=== PATIENT | female | born 1975 | race Caucasian/White ===

== ENCOUNTER 2018-12-10 06:31 | Day surgery (SDC) | payer OTHER ==
[2018-12-10] MEDS ORDERED: ANESTHESIA TRAY IN PYXIS 1 EA TRAY MC ONE (07:05)
[2018-12-10] MEDS ORDERED: IOHEXOL 50 ML IV ONE (07:50)
[2018-12-10] MEDS ORDERED: LIDOCAINE /MPF 1% VIAL 5 ML VIAL ONE (07:51)
[2018-12-10] MEDS ORDERED: BUPIVACAINE 0.5 % PF 150 MG/30 ML VIAL ONE (07:51)
[2018-12-10] MEDS ORDERED: BETA ACET/BET NA PHOS MDV 6 MG/ML VIAL ONE (07:52)
== END 2018-12-10 14:00 | disposition home or self-care (01) ==
LOC: DS 06:31 → MED 06:33 → UNDOADMIN 06:33 → UNDODISIN 09:45 → DS 14:00
PROVIDERS: ATTEND Student in an Organized Health Care Education/Training Program
DX: M25.851 Other specified joint disorders, right hip (principal)
CPT/HCPCS: 27095; 73501; 84703; 87081; A6402; J0702; J2704; J3490 ×2; Q9967; G0378

== ENCOUNTER 2019-02-18 05:30 | Inpatient (IN) | payer OTHER ==
[~2019-02-18] VITALS: Ht 154.9 cm; Wt 50.6 kg
--- NOTE | 2019-02-18 06:12 | NUR ---
RN MS OPENING NOTES PT ADMITTED FROM HOME FOR R HIP ARTHROPLASTY WITH DR. HUERTA. PT A/OX4, BREATHING EVEN AND UNLABORED ON ROOM AIR, IV ACCESS ON THE L AC 20G PATENT AND FLUSHING, CONSENTS SIGNED, CHECKLIST COMPLETED, IN BED AWAITING OR TRANSPORT
[2019-02-18] MEDS ORDERED: FENTANYL PF 100MCG/2ML AMPUL ONE (07:20)
[2019-02-18] MEDS ORDERED: MIDAZOLAM HCL 2 MG/2ML VIAL ONE (07:20)
[2019-02-18] MEDS ORDERED: ANESTHESIA TRAY IN PYXIS 1 EA TRAY MC ONE (07:24)
[2019-02-18] MEDS ORDERED: BACITRACIN 50000 UNITS/VIAL ONE (07:24)
--- NOTE | 2019-02-18 07:51 | NUR ---
MS RN OPENING NOTES RECEIVED PT LAYING IN BED WITH HOB SLIGHTLY ELEVATED. PT IS A/O X4, AFEBRILE. RESPIRATIONS ARE EVEN AND UNLABORED, NOT IN ANY ACUTE DISTRESS NOTED. PT C/O PAIN 5/10 TO RIGHT HIP. DENIES ANY SOB, N/V AT THIS TIME. PT SCHEDULED FOR SURGERY TODAY. SAFETY MEASURES ARE IN PLACE. INSTRUCTED PT TO USE CALL LIGHT WHEN ASSISTANCE IS NEEDED, CALL LIGHT IS LEFT WITHIN REACH. WILL MONITOR THROUGHOUT SHIFT FOR CONTINUITY OF CARE.
--- NOTE | 2019-02-18 07:55 | NUR ---
MS RN NOTES-- PT P/U BY OR FOR RIGHT HIP ARTHROSCOPY VIA [facility]BY.
[2019-02-18] MEDS ORDERED: DESFLURANE 240 ML BOTTLE IH ONE ×2 (08:10→08:16)
[2019-02-18] MEDS ORDERED: SEVOFLURANE 250 ML BOTTLE IH ONE (08:16)
[2019-02-18] MEDS ORDERED: EPINEPHRINE (1:1000) 1 MG/ML AMPUL ONE ×2 (08:22→09:07)
[2019-02-18] MEDS ORDERED: MORPHINE SULFATE/PF 10 MG/10ML (1MG/ML) AMPUL ONE (09:31)
[2019-02-18] MEDS ORDERED: BUPIVACAINE 0.5 % PF 150 MG/30 ML VIAL ONE (09:32)
[2019-02-18] MEDS ORDERED: HYDROMORPHONE INJ 2 MG/ML DISP.SYRIN ONE (10:01)
[2019-02-18] MEDS ORDERED: HYDROMORPHONE 1 MG/1 ML DISP.SYRIN ONE (10:19)
[2019-02-18 10:55] VITALS: BP 120/79
--- NOTE | 2019-02-18 11:00 | NUR ---
MS RN NOTES-- PT CAME BACK FROM SURGERY FOR RIGHT HIP ARTHROSCOPY. VITAL SIGNS ARE WNL. DRESSING TO RIGHT HIP INTACT, CLEAN AND DRY. NO DRAINAGE NOTED AT THIS TIME. IV SITE LAC 20 G INTACT, NO INFILTRATION NOTED. DRESSING KEPT CLEAN AND DRY. SAFETY MEASURES ARE IN PLACE. INSTRUCTED PT TO USE CALL LIGHT WHEN ASSISTANCE IS NEEDED, CALL LIGHT IS LEFT WITHIN REACH. WILL CONTINUE TO MONITOR THROUGHOUT SHIFT FOR CONTINUITY OF CARE.
[2019-02-18] MEDS ORDERED: ONDANSETRON HCL/PF 4 MG/2 ML VIAL IV PRN (14:10)
[2019-02-18] MEDS ORDERED: MORPHINE SULFATE INJ 4 MG/ML DISP.SYRIN IV PRN ×2 (14:30)
[2019-02-18 16:00] VITALS: BP 111/70
--- NOTE | 2019-02-18 16:28 | NUR ---
DS RN NOTES-- PT EXPRESSED THAT SHE HAS NO IDEA WHAT THE PLAN IS GOING HOME. CALLED DR. ZACARIAS L[employer]S SYSTEM ANALYST TO SPEAK WITH THE PT RE: PLAN OF CARE AT HOME. PER URVASHI, WILL CALL ANMOL ROSAS, TO SPEAK WITH THE PT.
--- NOTE | 2019-02-18 19:10 | NUR ---
MS RN OPENING NOTES Received patient in bed, alert, oriented x 4. at bedside. Breathing even and unlabored. Not in any distress. No complaints at this time. Safety measures in place; call light within reach. Bed in low, locked position. Will continue to monitor accordingly
[2019-02-18 20:00] VITALS: BP 113/72
[2019-02-18 20:56] VITALS: BP 113/72
--- NOTE | 2019-02-19 06:25 | NUR ---
MS RN CLOSING NOTES Patient resting in bed, alert, oriented x 4. Not in any distress. On room air. No acute changes overnight. No complaints of pain. Safety measures in place; call light within reach, bed in low, locked position. Will endorse MORELIA to oncoming RN
--- NOTE | 2019-02-19 07:42 | NUR ---
MS RN OPENING NOTES RECEIVED PT AWAKE IN BED IN NO ACUTE SIGN OF DISTRESS. A/O X4. ABLE TO MAKE NEEDS KNOWN AND STATED THAT PAIN IS TOLERABLE AT THIS TIME. DRESSING ON RIGHT HIP C/D/I. ON ROOM AIR, BREATHING EVEN AND UNLABORED. IV ACCESS ON LAC G#20 INTACT, PATENT AND FLUSHES WELL. SAFETY MEASURES IN PLACE. BED IN LOW LOCKED WITH UPPER RAILS UP. CALL LIGHT WITHIN REACH. WILL CONTINUE TO MONITOR ACCORDINGLY.
[2019-02-19 09:10] VITALS: BP 101/65
[2019-02-19] MEDS ORDERED: INFLUENZA VACCINE 2019-20 0.5 ML DISP.SYRIN IM ONE (13:30)
--- NOTE | 2019-02-19 14:29 | NUR ---
RN NOTES/FLU SHOT PATIENT REQUESTED FOR FLU VACCINE SHOT. FLU SHOT GIVEN IM TO RIGHT DELTOID WITHOUT PROBLEM. WILL CONTINUE TO MONITOR.
--- NOTE | 2019-02-19 16:13 | NUR ---
RN DISCHARGED NOTES PATIENT DISCHARGED HOME IN STABLE CONDITION. A/O X4 AND ABLE TO MAKE NEEDS KNOWN. V/S TAKEN, STABLE AND RECORDED. FLU SHOT ADMINISTERED TO RIGHT DELTOID PRIOR TO DISCHARGE, NO C/O PAIN OR DISCOMFORTS AT SITE VOICED. ALL BELONGINGS ACCOUNTED FOR AND SIGNED FORM. IV ACCESS REMOVED WITH NO BLEEDING NOTED, DRY DRESSING APPLIED. NAME ARMBAND REMOVED. PRESCRIPTION HANDED TO PT. HEALTH TEACHINGS/DISCHARGE INSTRUCTIONS GIVEN TO PT AND VERBALIZED UNDERSTANDING. PT LEFT UNIT AT 1535 VIA WHEELCHAIR ACCOMPANIED BY AND MEDICAL INVESTIGATOR. MD AND CHARGE NURSE AWARE OF DISCHARGE.
== END 2019-02-19 15:35 | disposition home or self-care (01) | DRG 482 ==
LOC: DS 05:30 → MED 05:31
PROVIDERS: ADMIT Internal Medicine; ATTEND Internal Medicine
DX: M25.851 Other specified joint disorders, right hip (principal); N95.9 Unspecified menopausal and perimenopausal disorder
CPT/HCPCS: 73501; 84703-TC; 87081-TC; 88304-TC; 88311-TC; 97116-TC; 97530-TC; A4217; G0378; J0171; J0690; J1100; J1170; J1885; J2250; J2274; J2405; J2704; J3010; J3490; Q2036